=== PATIENT | female | born 1995 | race Asian ===

== ENCOUNTER 2017-11-18 08:50 | Inpatient (IN) | payer OTHER ==
[2017-11-18] MEDS ORDERED: CARBOPROST 250 MCG INJ IM (11:00)
[2017-11-18] MEDS ORDERED: OXYTOCIN 30 UNITS/LR 500 ML IV (11:00)
[2017-11-18] MEDS ORDERED: MISOPROSTOL 200 MCG TAB PR (11:00)
[2017-11-18] MEDS ORDERED: METHYLERGONOVINE 0.2 MG INJ IM (11:00)
[2017-11-18] MEDS ORDERED: LIDOCAINE 1% (MPF) 30 ML INJ INJ (11:00)
[2017-11-18] MEDS ORDERED: IBUPROFEN 600 MG TAB PO (11:00)
[2017-11-18 11:16] LABS: ADD MAN DIFF? NO
[2017-11-18 11:22] LABS: WHITE BLOOD COUNT 8.4 10^3/ul (4.8-10.8)
[2017-11-18 11:22] LABS: BASOPHILS % 0.2 % (0.0-2.0); EOSINOPHILS # 0.1 10^3/ul (0.0-0.5); EOSINOPHILS % 1.1 % (0.0-7.0); HEMATOCRIT 31.7 % (37.0-47.0); HEMOGLOBIN 9.7 g/dl (12.0-16.0); LYMPHOCYTES % 24.4 % (15.0-51.0); MEAN CORPUSCULAR HEMOGLOBIN 20.9 pg (29.0-33.0); MEAN CORPUSCULAR HGB CONC 30.6 g/dl (32.0-37.0); MEAN CORPUSCULAR VOLUME 68.2 fl (82.0-101.0); MEAN PLATELET VOLUME 10.8 fl (7.4-10.4); MONOCYTE # 0.4 10^3/ul (0.3-0.9); MONOCYTES % 4.4 % (0.0-11.0); NEUTROPHIL # 5.7 10^3/ul (1.6-7.5); NEUTROPHILS % 68.8 % (39.0-77.0); NUCLEATED RED BLOOD CELLS% 0.4 /100WBC (0.0-0.0); PLATELET COUNT 164 10^3/UL (140-415); RED BLOOD COUNT 4.65 10^6/ul (4.20-5.40); RED CELL DISTRIBUTION WIDTH 20.1 % (11.5-14.5)
[2017-11-18] MEDS: DEXTROSE 5%-LR 1,000 ML IV ×2 (11:25→19:19)
[2017-11-18] MEDS: AMPICILLIN 2 GM/NS (PMX) 100 ML IV (11:25)
[2017-11-18 11:47] LABS: GLUCOSE 94 mg/dl (70-220)
[2017-11-18 12:17] LABS: INR 0.93; PROTIME 12.5 Sec (11.9-14.9)
[2017-11-18 12:18] LABS: PARTIAL THROMBOPLASTIN TIME 27.3 Sec (25.0-35.0)
[2017-11-18] MEDS: AMPICILLIN 1 GM/NS (PMX) 50 ML IV ×3 (15:04→23:00)
[2017-11-18] MEDS: ACCU-CHEK XX ×2 (19:00→23:00)
[2017-11-18 22:37] LABS: RAPID PLASMA REAGIN NONREACTIVE (NR)
[2017-11-18] MEDS: LACTATED RINGER'S 1,000 ML IV (23:02)
[2017-11-19] MEDS: BUTORPHANOL 2 MG INJ IV (02:13)
[2017-11-19] MEDS: ACCU-CHEK XX ×2 (03:00→06:57)
[2017-11-19] MEDS: AMPICILLIN 1 GM/NS (PMX) 50 ML IV ×4 (03:18→14:48)
[2017-11-19] MEDS ORDERED: OXYTOCIN 30 UNITS in LACTATED RINGER'S 497 ML IV (08:00)
[2017-11-19] MEDS: OXYTOCIN 30 UNITS/LR 500 ML IV ×3 (08:39→17:59)
[2017-11-19] MEDS: LACTATED RINGER'S 1,000 ML IV ×3 (11:08→13:42)
[2017-11-19] MEDS ORDERED: FENTAnyl 2MCG/ML-ROPIV 0.2% 100 ML (12:55)
[2017-11-19] MEDS ORDERED: FENTAnyl 2MCG/ML-ROPIV 0.2% 100 ML BAG EPI (14:00)
[2017-11-19] MEDS ORDERED: ONDANSETRON 4 MG INJ IV (14:00)
[2017-11-19] MEDS ORDERED: DIPHENHYDRAMINE 50 MG INJ IV (14:00)
[2017-11-19] MEDS ORDERED: NALOXONE (0.4 MG/ML) INJ IV (14:00)
[2017-11-19] MEDS: DEXTROSE 5%-LR 1,000 ML IV (14:49)
[2017-11-19] MEDS: ACETAMINOPHEN 325 MG TAB PO (15:39)
[2017-11-19] MEDS ORDERED: OXYTOCIN 30 UNITS/LR 500 ML IV (20:30)
[2017-11-19] MEDS ORDERED: ACETAMINOPHEN 325 MG TAB PO (20:30)
[2017-11-19] MEDS ORDERED: MISOPROSTOL 200 MCG TAB PR (20:30)
[2017-11-19] MEDS ORDERED: METHYLERGONOVINE 0.2 MG INJ IM (20:30)
[2017-11-19] MEDS ORDERED: DIBUCAINE 1% 30 GM OINT PR (20:30)
[2017-11-19] MEDS ORDERED: CARBOPROST 250 MCG INJ IM (20:30)
[2017-11-19] MEDS: SENNA/DOCUSATE NA (8.6MG/50MG) TAB PO (21:45)
[2017-11-19] MEDS: WITCH HAZEL/GLYCERIN PAD PR (21:45)
[2017-11-19] MEDS: LANOLIN 7 GM TUBE TOP (21:46)
[2017-11-19] MEDS: BENZOCAINE 20% 56 ML SPRAY TOP (21:46)
[2017-11-19] MEDS: IBUPROFEN 600 MG TAB PO (23:47)
[2017-11-19] MEDS: LACTATED RINGER'S 1,000 ML IV* (23:48)
[2017-11-20] MEDS: LACTATED RINGER'S 1,000 ML IV* (04:18)
[2017-11-20] MEDS: IBUPROFEN 600 MG TAB PO ×3 (05:45→18:09)
[2017-11-20] MEDS: SENNA/DOCUSATE NA (8.6MG/50MG) TAB PO ×2 (09:10→21:35)
[2017-11-20 09:16] LABS: ADD MAN DIFF? NO
[2017-11-20 09:20] LABS: BASOPHILS % 0.1 % (0.0-2.0); EOSINOPHILS # 0.1 10^3/ul (0.0-0.5); EOSINOPHILS % 0.6 % (0.0-7.0); HEMATOCRIT 26.5 % (37.0-47.0); HEMOGLOBIN 8.1 g/dl (12.0-16.0); LYMPHOCYTES # 2.5 10^3/ul (0.8-2.9); LYMPHOCYTES % 25.1 % (15.0-51.0); MEAN CORPUSCULAR HEMOGLOBIN 20.8 pg (29.0-33.0); MEAN CORPUSCULAR HGB CONC 30.6 g/dl (32.0-37.0); MEAN CORPUSCULAR VOLUME 68.1 fl (82.0-101.0); MEAN PLATELET VOLUME 10.4 fl (7.4-10.4); MONOCYTE # 0.4 10^3/ul (0.3-0.9); MONOCYTES % 4.2 % (0.0-11.0); NEUTROPHIL # 6.8 10^3/ul (1.6-7.5); NEUTROPHILS % 69.4 % (39.0-77.0); NUCLEATED RED BLOOD CELLS% 0.4 /100WBC (0.0-0.0); PLATELET COUNT 132 10^3/UL (140-415); RED BLOOD COUNT 3.89 10^6/ul (4.20-5.40); RED CELL DISTRIBUTION WIDTH 19.8 % (11.5-14.5)
[2017-11-20 09:20] LABS: WHITE BLOOD COUNT 9.8 10^3/ul (4.8-10.8)
[2017-11-20] MEDS: HYDROCODONE/APAP (5/325) TAB PO (16:40)
[2017-11-20] MEDS: INFLUENZA VIRUS VACCINE 0.5 ML (DISPENSING) IM* (16:42)
[2017-11-20] MEDS: FERROUS SULFATE (EC) 325 MG TAB PO (21:35)
[2017-11-21] MEDS: IBUPROFEN 600 MG TAB PO ×3 (00:14→11:19)
[2017-11-21] MEDS: SENNA/DOCUSATE NA (8.6MG/50MG) TAB PO (08:48)
[2017-11-21] MEDS: FERROUS SULFATE (EC) 325 MG TAB PO ×2 (08:48→12:59)
[2017-11-21] MEDS: DIPHTH/TET/ACEL PERTUSS (ADULT) 0.5 ML VIAL IM* (08:50)
[2017-11-21] MEDS ORDERED: INFLUENZA VIRUS VACCINE 0.5 ML (DISPENSING) IM* (09:00)
[2017-11-21] MEDS: MEASLES,MUMPS,RUBELLA VACCINE INJ SC* (10:00)
[2017-11-21] MEDS: HYDROCODONE/APAP (5/325) TAB PO (12:59)
== END 2017-11-21 17:39 | disposition home or self-care (01) | DRG 775 ==
LOC: OBT 08:50 → PP1 11-19 20:39 → L-D 08:57 → OBT 10:30 → L-D 10:30
PROVIDERS: Obstetrics & Gynecology
PROC: 10E0XZZ Delivery of Products of Conception, External Approach (ICD-10-PCS; principal; 2017-11-19)
PROC: 0KQM0ZZ Repair Perineum Muscle, Open Approach (ICD-10-PCS; 2017-11-19)
DX: O24.420 Gestational diabetes mellitus in childbirth, diet controlled (principal); O70.1 Second degree perineal laceration during delivery; Z37.0 Single live birth; Z3A.39 39 weeks gestation of pregnancy
CPT/HCPCS: 62319; 76818; 82947; 82962; 85025; 85610; 85730; 86592; 86850; 86900; 86901; 90686; 90715; 99464